=== PATIENT | female | born 1975 | race Caucasian/White ===

== ENCOUNTER 2022-04-10 11:03 | Emergency (ER) | payer OTHER ==
[~2022-04-10] VITALS: Ht 165.1 cm; Wt 65.8 kg
[~2022-04-10 11:03] MED LIST: ALBU90OI INH; ALBU90OI61 INH; AZIT250 PO; BENZ100A PO; CEPH500 PO; FAMO40 PO; HYDACE5 PO; IBUP600 PO; MOMENI; NAPR500EC PO; OMEP20ER PO; OXYACE5T PO; PENVK500 PO; PROM25 PO; RXHYDACE PO; RXOXYACE PO; SUCR1 PO; SULTRIDS PO
[2022-04-10] MEDS ORDERED: Norco 7.5-3251 EACH PO (14:27)
== END 2022-04-10 14:34 | disposition home or self-care (01) ==
LOC: ER 11:03
DX: S60.212A Contusion of left wrist, initial encounter (principal); F17.210 Nicotine dependence, cigarettes, uncomplicated; W01.0XXA Fall on same level from slipping, tripping and stumbling without subsequent striking against object, initial encounter
CPT/HCPCS: 29125; 73110; 99283-25; A9270

== ENCOUNTER 2022-06-11 21:25 | Emergency (ER) | payer OTHER ==
[~2022-06-11] VITALS: Ht 165.1 cm; Wt 67.1 kg
[~2022-06-11 21:25] MED LIST changes: +Norco 7.5-3251 EACH PO
[2022-06-11] MEDS ORDERED: CRUTCH4 XX (22:53)
[2022-06-11] MEDS ORDERED: IBUP600 PO (22:53)
== END 2022-06-11 22:54 | disposition home or self-care (01) ==
LOC: ER 21:25
DX: S93.401A Sprain of unspecified ligament of right ankle, initial encounter (principal); W17.89XA Other fall from one level to another, initial encounter; Y93.01 Activity, walking, marching and hiking; F17.210 Nicotine dependence, cigarettes, uncomplicated
CPT/HCPCS: 29515; 73610; 99283-25; A9270